=== PATIENT | female | born 1975 | race American Indian/Alaskan Native ===

== ENCOUNTER 2019-09-08 10:26 | Emergency (ER) | payer SELFPAY ==
[2019-09-08 10:36] VITALS: BP 118/80
[2019-09-08] MEDS ORDERED: dexAMETHasone 4 MG/ML VIAL IM STA (11:17)
[2019-09-08] MEDS ORDERED: IBUPROFEN 800 MG TAB PO ONE (11:17)
--- NOTE | 2019-09-08 11:17 | Emergency Department Report ---
Minor Respiratory - HPI Chief Complaint: Upper Respiratory Infection Stated Complaint: SORETHROAT/BODYACHES Time Seen by Provider: 09/08/19 11:16 Duration: 10 days Pain Location: Throat Severity: moderate (6) Minor Respiratory: Yes Rhinorrhea (nasal congestion), Yes Sore Throat (No drooling), Yes Able to Tolerate Fluids, Yes Cough, Yes Fever, No Ear Pain, No Sick Contacts, No Hemoptysis, No Chest Pain, No Shortness of Breath Other History: This is a 43-year-old female here report that she is having cold and cough symptoms. Reports sore throat /10 feels sore worse with swallowing. Denies any drooling. Denies any nausea or vomiting. Denies any shortness of breath or chest pain ED Review of Systems ROS: Stated complaint: SORETHROAT/BODYACHES Other details as noted in HPI ED Past Medical Hx - Past Medical History Previous Medical History?: Yes Hx Hypertension: Yes - Surgical History Past Surgical History?: No - Social History Smoking Status: Never Smoker - Medications Home Medications: Home Medications Medication Instructions Recorded Confirmed Last Taken Type Amoxicillin/K Clav Tab [Augmentin 1 tab PO Q12HR #20 tab 09/08/19 Unknown Rx 875MG TAB] Cetirizine HCl [ZyrTEC] 10 mg PO QAM 14 Days #14 capsule 09/08/19 Unknown Rx Ibuprofen [Motrin] 600 mg PO Q8H PRN #12 tablet 09/08/19 Unknown Rx predniSONE [Deltasone] 50 mg PO QDAY 5 Days #5 tab 09/08/19 Unknown Rx Minor Respiratory Exam - Exam General: Vital signs noted. No distress. Alert and acting appropriately. Neurologic: Alert and oriented, no deficits. Musculoskeletal: Unremarkable. ED Course Vital Signs 09/08/19 10:34 Temperature 100.7 F H Pulse Rate 82 Respiratory 16 Rate Blood Pressure 118/80 O2 Sat by Pulse 99 Oximetry Critical care attestation.: If time is entered above; I have spent that time in minutes in the direct care of this critically ill patient, excluding procedure time. ED Disposition Clinical Impression: URI with cough and congestion Disposition: -01 TO HOME OR SELFCARE Is pt being admited?: No Does the pt Need Aspirin: No Condition: Stable Instructions: Upper Respiratory Infection (ED), Acute Cough (ED) Additional Instructions: Please take medication as prescribed Please follow-up with a primary care physician in 2-3 days If Condition worsens, return to the emergency room Referrals: [facility] [Outside] - 2-3 Days Forms: Work/School Release Form(ED)
[2019-09-08] MEDS ORDERED: dexAMETHasone 20 MG in SODIUM CHLORIDE 0.9% 50 ML IV ONE (12:17)
== END 2019-09-08 12:45 | disposition home or self-care (01) ==
LOC: ED 10:26
DX: J06.9 Acute upper respiratory infection, unspecified (principal); I10 Essential (primary) hypertension
CPT/HCPCS: 96372; 99282; J1100